=== PATIENT | male | born 1955 | race Caucasian/White ===

== ENCOUNTER 2022-04-20 12:48 | Emergency (ER) | payer OTHER ==
[2022-04-20] MEDS ORDERED: Sodium Chloride 0.9% 1,000 ML IV ONE (12:50)
[2022-04-20] MEDS ORDERED: Sodium Chloride 0.9% 1,000 ML ONE (12:56)
[2022-04-20] MEDS ORDERED: Acetaminophen 500 MG Tab PO ONE (13:25)
[2022-04-20 13:36] LABS: ANION GAP 17.4 mmol/L (5-15)
[2022-04-20] MEDS ORDERED: Albuterol 0.083% 2.5 MG/3 ML Neb Soln NEB ONE (14:36)
[2022-04-20 15:04] LABS: CORONAVIRUS COVID-19 NAA NEGATIVE (NEGATIVE)
[2022-04-20] MEDS ORDERED: methylPREDNISolone Sodium Succinate 125 MG/2 ML SDV IVPUSH ONE (15:08)
== END 2022-04-20 15:45 | disposition home or self-care (01) ==
LOC: KA.ED 12:48
DX: R05.9 Cough, unspecified (principal); B97.4 Respiratory syncytial virus as the cause of diseases classified elsewhere; I11.0 Hypertensive heart disease with heart failure; I50.9 Heart failure, unspecified; Z79.899 Other long term (current) drug therapy; Z88.5 Allergy status to narcotic agent; Z20.822 Contact with and (suspected) exposure to COVID-19
CPT/HCPCS: 0240U; 36415; 71046; 80053; 83880; 84484; 85025; 87040; 87070; 87186; 87205; 87807; 93005; 93010; 96361; 96374; 99284; 99284-25; A9270-GY; J2930; J7030; J7613-GY

== ENCOUNTER 2022-04-24 16:55 | Emergency (ER) | payer OTHER ==
[2022-04-24 17:28] LABS: ANION GAP 13.5 mmol/L (5-15)
== END 2022-04-24 19:12 | disposition home or self-care (01) ==
LOC: KA.ED 16:55
DX: J13 Pneumonia due to Streptococcus pneumoniae (principal); H66.91 Otitis media, unspecified, right ear; I11.0 Hypertensive heart disease with heart failure; I50.9 Heart failure, unspecified; E78.00 Pure hypercholesterolemia, unspecified; K21.9 Gastro-esophageal reflux disease without esophagitis; Z91.041 Radiographic dye allergy status; Z88.5 Allergy status to narcotic agent; Z79.899 Other long term (current) drug therapy
CPT/HCPCS: 36415; 71045; 71046; 80048; 85025; 86140; 99283-25; 99284